=== PATIENT | female | born 2000 | race Caucasian/White ===

== ENCOUNTER 2023-01-28 21:13 | Emergency (ER) | payer OTHER, SELFPAY ==
[2023-01-28] VITALS (22 sets, daily range): BP systolic 119–145; BP diastolic 68–97; PULSE 89–175; RESP 12–21; TEMP 36.4; O2SAT 99–100
--- NOTE | ~2023-01-28 | XR_ITS ---
Portable chest x-ray Comparison: None Clinical History: Dyspnea Findings: Lungs are clear, without focal consolidation or pleural effusion. Cardiomediastinal silho uette is unremarkable. Bones and soft tissues are unremarkable. Impression: Normal chest. Reviewed, dictated and finalized at location . Impression: Normal chest.
--- NOTE | 2023-01-28 21:18 | ECG_ITS ---
Measurements Intervals [place] Rate: 160 P: [place]: 0 QRS: 96 QRSD: 83 T: -7 QT: 269 QTc: 439 Interpretive Statements ATRIAL FIBRILLATION WITH RAPID VENTRICULAR RESPONSE RIGHT AXIS DEVIATION INCOMPLETE RIGHT BUNDLE BRANCH BLOCK NONSPECIFIC ST & T-WAVE ABNORMALITY- ANTEROLAT/INF LEADS BASELINE ARTIFACT- I, II, III, AVR, AVL, AVF, V1, V6 ABNORMAL ECG NO PREVIOUS ECG AVAILABLE FOR COMPARISON Electronically Signed On 01-28-2023 21:37:45 CDT by Ta Saleh D.O.
[2023-01-28] MEDS: dilTIAZem HCl INJ 25 MG/5 ML VIAL 10 MG IV PUSH (21:36)
--- NOTE | 2023-01-28 21:43 | PC.NURSE ---
Pt reports two previous holter monitors. One for two days, one for a month about 6 years ago from PCP Dr Ornelas in [place], [place]. Unsure of previous results. 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
[2023-01-28 21:49] LABS: Basophils Percent Auto 0.3 % (0.2-1.2); Eosinophils Absolute Auto 0.4 K/mm3 (0-0.3); Eosinophils Percent Auto 4.1 % (0-4.4); Hematocrit 39.1 % (42.0-52.0); Hemoglobin 13.3 g/dL (14.0-18.0); Immature Granulocyte Absolute 0.02 K/mm3 (0.00-0.031); Immature Granulocyte Percent A 0.2 % (0-0.5); Lymphocytes Absolute Auto 3.56 K/mm3 (0.9-3.2); Lymphocytes Percent Auto 40.9 % (18.3-44.2); Mean Corpuscular Hemoglobin 29.4 pg (26-34); Mean Corpuscular Volume 86.3 fl (80-100); Mean Platelet Volume 9.2 fl (7.4-10.4); Monocytes Percent Auto 11.1 % (2.6-8.5); Neutrophils Absolute Auto 3.8 K/mm3 (1.3-6.7); Neutrophils Percent Auto 43.4 % (45.5-73.1); Platelet Count Result 323 k/mm3 (150-375); Red Blood Count 4.53 M/mm3 (4.2-6.2); Red Cell Distribution Width 12.4 % (11.5-14.5); White Blood Count 8.7 K/mm3 (4.5-10.0)
[2023-01-28] MEDS: dilTIAZem HCl INJ 25 MG/5 ML VIAL 15 MG IV PUSH (21:51)
--- NOTE | 2023-01-28 21:57 | PC.NURSE ---
Xray at bedside. Second cardizem push complete.
[2023-01-28 22:01] LABS: INR 1.2; Prothrombin Time 14.4 Seconds (11.1-14.7)
[2023-01-28 22:02] LABS: Partial Thromboplastin Time 32.4 SECONDS (22.3-36.8)
[2023-01-28 22:19] LABS: Alanine Aminotransferase 15 U/L (6-50); Albumin Level 4.7 g/dL (3.5-5.1); Alkaline Phosphatase 59 U/L (38-126); Anion Gap 7 mmol/L (8-16); Aspartate Amino Transferase 28 U/L (17-59); Bilirubin,Total 0.6 mg/dL (0.2-1.3); Blood Urea Nitrogen 18 mg/dL (7-20); Calcium 8.9 mg/dL (8.4-10.2); Carbon Dioxide 25 mmol/L (22-30); Chloride 107 mmol/L (96-107); Estimated Glomerular Filt Rate > 60; Glucose 104 mg/dL (65-110); Lipase 157 U/L (23-300); Potassium 3.4 mmol/L (3.4-5.0); Sodium 139 mmol/L (137-145)
[2023-01-28 22:35] LABS: Troponin I < 0.012 ng/mL (0.000-0.034)
--- NOTE | 2023-01-28 22:46 | ED.GENADULT ---
HPI - General Adult General Chief complaint: Arrhythmia/Palpitations Stated complaint: palpitation Time Seen by Provider: 01/28/23 21:36 History of Present Illness HPI narrative: This is a 22-year-old female preting to ED with chief complaint of palpitations. Patient states that she has been having palpitations for many years. Usually they only last a couple seconds at a time and then resolve on their own. Today they started and they did not resolve. And the patient had some associated shortness of breath but no chest pain nausea vomiting or diaphoresis. The patient denies use of caffeine or supplements. She denies illicit drug use. She has seen a supervisor tumbling and rolling Was much younger. Related Data Allergies Allergy/AdvReac Type Severity Reaction Status Date / Time No Known Allergies Allergy Verified 01/28/23 21:28 Exam Narrative: APPEARANCE: No apparent distress. patient is pleasant and polite. Head: atraumatic. EYES: EOMI, NOSE: Atraumatic NECK: Trachea midline RESPIRATORY: No increased rate of breathing, CTAB CARDIOVASCULAR: Irregular and rapid, no peripheral edema ABDOMINAL: Non-distended, soft nontender no guarding or rebound MUSCULOSKELETAl: No obvious deformities NEURO: Alert. Moving 4/4 extremities SKIN:: Warm, dry. Normal color PSYCHIATRIC: Normal affect Course Vital Signs Vital signs: Vital Signs Temperature 97.6 F 01/28/23 21:16 Pulse Rate 175 01/28/23 21:16 Respiratory Rate 16 01/28/23 21:16 Blood Pressure 126/87 01/28/23 21:16 Pulse Oximetry 100 01/28/23 21:16 Oxygen Delivery Room Air 01/28/23 21:16 Temperature 97.6 F 01/28/23 21:16 Pulse Rate 76 01/29/23 00:36 Respiratory Rate 15 01/29/23 00:36 Blood Pressure 109/68 01/29/23 00:36 Pulse Oximetry 100 01/29/23 00:36 Oxygen Delivery Room Air 01/28/23 21:16 Medical Decision Making [facility] Narrative Medical decision making narrative: -Presentation: 22-year-old female presenting in AFib with RVR -DDX includes but is not limited to: AFib, thyrotoxicosis, substance use -Co-morbidities complicating care: none -Social determinants of health: patient is a pharmacy sales assistant. She lives with 2 roommates. -External Chart Review: None -Hx from independent Sources: Roommate at bedside -Discussion of Management/Consultants: none -Independent interpretation of studies: Independent EKG interpretation: Rhythm atrial fibrillation, Rate [160], [place] -[normal], [place] - none, QRS [narrow], QTC [normal], T waves -[negative for concerning inversions], ST Segments - [Negative for concerning elevations] Final interpretations: AFib with RVR RHONDA?DS?-VASc Score for Atrial Fibrillation Stroke Risk from varinode on 01/28/2023 All calculations should be rechecked by clinician prior to use RESULT SUMMARY: 1 points Stroke risk was 0.6% per year in >90,000 patients (the [place] Atrial Fibrillation Cohort Study) and 0.9% risk of stroke/TIA/systemic embolism. One recommendation suggests a 0 score for men or 1 score for women (no clinical risk factors) is ?low? risk and may not require anticoagulation; a 1 score for men or 2 score for women is ?low-moderate? risk and should consider antiplatelet or anticoagulation; and a score >= for men or >= for women is ?moderate-high? risk and should otherwise be an anticoagulation candidate. INPUTS: Age ?> 0 = <65 Sex ?> 1 = Female CHF history ?> 0 = No Hypertension history ?> 0 = No Stroke/TIA/thromboembolism history ?> 0 = No Vascular disease history (prior NM, peripheral artery disease, or aortic plaque) ?> 0 = No Diabetes history ?> 0 = No no indication for anticoagulation. TSH was elevated at 10.7 indicating hypothyroid which should not be causing atrial fibrillation. This can be followed by primary care physician. CBC, BMP, Trop Negative. -Dx considered but not ordered:none -Procedures: -Interventions: 10 mg diltiazem, 15 mg diltiazem, 10 mg IV metoprolol, 25 m
[2023-01-28 23:30] LABS: Amphetamine Screen Urine Negative (Negative); Barbiturate Screen Urine Negative (Negative); Benzodiazepines Screen Urine Negative (Negative); Cannabinoid Screen Urine Negative (Negative); Cocaine Screen Urine Negative (Negative); Methadone Screen Urine Negative (Negative); Opiate Screen Urine Negative (Negative); Phencyclidine Screen Urine Negative (Negative)
--- NOTE | 2023-01-28 23:30 | PC.NURSE ---
assumed care. pt resting per cart in no distress. no complaints at this time
--- NOTE | 2023-01-28 23:38 | PC.NURSE ---
Called lab to add on TSH.
[2023-01-28] MEDS: SODIUM CHLORIDE 0.9% IV 1,000 ML 999 ML IV CONT (23:40)
[2023-01-28] MEDS: METOPROLOL TARTRATE 25 MG TABLET PO (23:41)
[2023-01-28] MEDS: METOPROLOL TARTRATE INJ 5 MG/5 ML VIAL 10 MG IV PUSH (23:42)
[2023-01-29 00:36] VITALS: BP 109/68; PULSE 76; RESP 15; O2SAT 100
[2023-01-29 02:00] VITALS: BP 111/68; PULSE 78; RESP 16; O2SAT 100
[2023-01-29 03:43] LABS: Free T4 Free Thyroxine Reflex 1.24 ng/dL (0.78-2.19)
[2023-01-29 04:30] LABS: Total Triiodothyronine (T3) 1.56 NG/ML (0.97-1.69)
== END 2023-01-29 02:00 | disposition home or self-care (01) ==
PROVIDERS: Emergency Provider Emergency Medicine
DX: I48.91 Unspecified atrial fibrillation (principal)
CPT/HCPCS: 36415; 71045; 80053; 80307; 83690; 84439; 84443; 84480; 84484; 85025; 85610; 85730; 93005; 96361; 96374; 96375; 99284; A9270; J7030